=== PATIENT | male | born 1955 | race African-American/Black ===

== ENCOUNTER 2021-09-22 10:00 | Outpatient (CLI) | payer OTHER ==
[2021-09-17 13:45] VITALS: BMI 42.0
[2021-09-22 21:44] LABS: SARS-CoV-2 PCR by NAA Not Detected (NotDetected)
== END 2021-09-22 10:01 | disposition home or self-care (01) ==
LOC: CSHLAB 10:00
PROVIDERS: ATTEND Internal Medicine Gastroenterology
DX: Z01.818 Encounter for other preprocedural examination (principal); Z20.822 Contact with and (suspected) exposure to COVID-19
CPT/HCPCS: U0003; U0005

== ENCOUNTER 2021-09-27 06:50 | Day surgery (SDC) | payer OTHER ==
[2021-09-27] MEDS ORDERED: Lidocaine 1% MPF 2 ML VIAL ONE (08:40)
[2021-09-27] MEDS ORDERED: PROPOFOL 20 ML ONE ×3 (09:36→10:01)
== END 2021-09-27 10:55 | disposition home or self-care (01) ==
LOC: CSHSDC 06:50
PROVIDERS: ATTEND Internal Medicine Gastroenterology
PROC: 0DJD8ZZ Inspection of Lower Intestinal Tract, Via Natural or Artificial Opening Endoscopic (ICD-10-PCS; principal; 2021-09-27)
DX: Z12.11 Encounter for screening for malignant neoplasm of colon (principal); K57.30 Diverticulosis of large intestine without perforation or abscess without bleeding; K64.9 Unspecified hemorrhoids; Z80.0 Family history of malignant neoplasm of digestive organs; E66.9 Obesity, unspecified; E78.5 Hyperlipidemia, unspecified; I12.9 Hypertensive chronic kidney disease with stage 1 through stage 4 chronic kidney disease, or unspecified chronic kidney disease; N18.9 Chronic kidney disease, unspecified
CPT/HCPCS: J2704

== ENCOUNTER 2021-12-24 07:36 | Outpatient (CLI) | payer OTHER ==
[2022-01-07] MEDS ORDERED: Iopamidol 300 61% 100 ML VIAL FS ONE (09:45)
== END 2021-12-24 07:37 | disposition home or self-care (01) ==
LOC: CSHCT 07:36
PROVIDERS: ATTEND Internal Medicine Gastroenterology
DX: R93.5 Abnormal findings on diagnostic imaging of other abdominal regions, including retroperitoneum (principal); R93.41 Abnormal radiologic findings on diagnostic imaging of renal pelvis, ureter, or bladder
CPT/HCPCS: 82565